=== PATIENT | female | born 1950 | race Caucasian/White ===

== ENCOUNTER 2017-06-17 14:08 | Emergency (ER) | payer MEDICARE, BC ==
[2017-06-17 15:46] VITALS: BP 144/69
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
[2017-06-17] MEDS ORDERED: Acetaminophen TAB* 325 MG PO ONE (16:00)
== END 2017-06-17 16:20 | disposition home or self-care (01) ==
LOC: UCCORT 14:08
DX: J11.1 Influenza due to unidentified influenza virus with other respiratory manifestations (principal)
CPT/HCPCS: 87502; 99212; A9270-GY; G0463